=== PATIENT | male | born 1985 | race Caucasian/White ===

== ENCOUNTER 2021-09-09 17:15 | Emergency (ER) | payer OTHER ==
[~2021-09-09] VITALS: Ht 182.9 cm; Wt 127.0 kg
[~2021-09-09 17:15] MED LIST: ALLERGY10 MG PO; AMBEREN
[2021-09-09] MEDS ORDERED: FLONASE 0.05%50 MCG NARES (18:05)
[2021-09-09 18:08] LABS: ABSOLUTE LYMPHOCYTES 2.3 thou/uL (0.8-5.3); ABSOLUTE MONOCYTES 1.2 thou/uL (0.0-1.2); ABSOLUTE NEUTROPHILS 4.2 thou/uL (1.6-8.1); BASOPHILS 0.3 %; EOSINOPHILS 0.1 %; HEMATOCRIT 47.7 % (42.0-52.0); HEMOGLOBIN 16.4 gm/dL (14.0-18.0); LYMPHOCYTES 29.4 %; MCH 31.3 pg (26.0-34.0); MCHC 34.3 g/dL (28.0-37.0); MCV 91.3 fL (80.0-100.0); MONOCYTES 15.5 %; MPV 9.1 fl. (7.2-11.1); NUCLEATED RBCS 0 /100WBC; PLATELET COUNT* 251 thou/uL (150-400); POLYS 54.7 %; RBC 5.23 mil/uL (4.50-6.00); RDW-CV 12.9 % (10.5-14.5); WBC 7.7 thou/uL (4.0-11.0)
[2021-09-09 18:09] LABS: URINE BILIRUBIN NEGATIVE (Negative); URINE BLOOD NEGATIVE (Negative); URINE CLARITY CLEAR; URINE COLOR YELLOW; URINE GLUCOSE-RANDOM NEGATIVE (Negative); URINE KETONES 1+ (Negative); URINE LEUKOCYTES-REFLEX NEGATIVE (Negative); URINE NITRITE-REFLEX NEGATIVE (Negative); URINE PROTEIN NEGATIVE (Negative); URINE SPECIFIC GRAVITY 1.015 (1.005-1.030); URINE UROBILINOGEN 0.2 E.U./dl (0.2-1.0)
[2021-09-09 18:16] LABS: CALCIUM 9.1 mg/dL (8.5-10.1); POTASSIUM 3.4 mmol/L (3.5-5.1)
[2021-09-09 18:21] LABS: AMP/METHAMP Negative (Negative); BARBITURATES Negative (Negative); BENZODIAZEPINES Negative (Negative); COCAINE Negative (Negative); METHADONE Negative (Negative); OPIATES Negative (Negative); PCP Negative (Negative); THC Negative (Negative)
[2021-09-09 18:21] LABS: ALBUMIN 3.9 g/dL (3.4-5.0); TOTAL BILIRUBIN 0.5 mg/dL (<0.1-1.0); TOTAL PROTEIN 8.6 g/dL (6.4-8.2)
[2021-09-09 18:30] LABS: ALCOHOL < 10 mg/dL (<10); SALICYLATE < 2.8 mg/dL (2.8-20.0)
[2021-09-09 18:33] LABS: ACETAMINOPHEN < 2 ug/mL (10-30)
[2021-09-09] MEDS ORDERED: HYDROXYZINE HCL25 M2 PO (20:27)
[2021-09-09 20:47] VITALS: BP 152/91
== END 2021-09-09 20:48 | disposition home or self-care (01) ==
LOC: M.ERS 17:15
PROVIDERS: Emergency Medicine Emergency Medical Services
DX: F32.9 Major depressive disorder, single episode, unspecified (principal); Z20.822 Contact with and (suspected) exposure to COVID-19; F10.20 Alcohol dependence, uncomplicated; R45.851 Suicidal ideations; Z79.899 Other long term (current) drug therapy; Z98.890 Other specified postprocedural states; Y90.9 Presence of alcohol in blood, level not specified